=== PATIENT | female | born 1940 | race Caucasian/White ===

== ENCOUNTER 2017-01-15 11:32 | Outpatient (CLI) | payer MEDICARE ==
--- NOTE | 2017-01-15 14:35 | PRG ---
DATE OF SERVICE: 01/15/2017 HISTORY: Ms. Claire Braun is a very pleasant 76-year-old accompanied by her daughter who presen ts to the [facility] for evaluation of a recurrent ulceration of the right heel. At the time of t he patient's last visit, Ms. Braun was placed on dressing changes of Promogran, Silverlon and Mepil ex border 3 times per week after cleansing and irrigation with the assistance of Home Health. The p atient is now utilizing a Heelift boot which has been customized by the patient's daughter. Ms. Nahomy oliva has no complaints today. She denies any fever or chills. PHYSICAL EXAMINATION: VITAL SIGNS: Temperature 98.0, pulse 72, respirations 18, blood pressure 132/68. Accu-Chek 331. EXTREMITIES: The ulceration of the right heel measures approximately 2.0 x 1.0 cm. The dimensions of the wound at the time of the patient's last visit were approximately 2.1 x 0.8 cm. Granulation t issue is present within the wound margins. No purulent drainage is associated with the wound. No e rythema of the skin surrounding the wound is present. No maceration of the skin of the periwound is noted. No significant edema of the right foot is present on today's exam. ASSESSMENT AND PLAN: 1. Right heel ulceration, recurrent. Dressing changes of Promogran and Silverlon, 4 x 4s, Kerlix, and an Adebayo bandage will be initiated today. These dressing changes are to be performed 3 times per week after cleansing and irrigation with the assistance of Home Health. Plain films of the right fo ot will also be obtained to look for findings suggestive of osteomyelitis. The patient has also bee n given a prescription for Bactrim DS #20 one p.o. b.i.d. x10 days. I will see Ms. Braun again in 2 weeks. The patient is to continue to utilize the Heelift boot at all times. As stated above, the patient is now utilizing a Heelift boot which has been customized by the patient's daughter. Previ ous cultures of the heel reveled the growth of Enterobacter cloacae complex sensitive to Bactrim. 2. Diabetes mellitus. The patient's Accu-Chek in clinic today is 331. The patient's daughter has been reminded that for optimal wound healing, the patient's blood glucoses should remain below 150. 3. Obstructive sleep apnea. 4. Attention deficit hyperactivity disorder. 5. Autoimmune hepatitis. 6. Hypertension. 7. Adrenal mass. 8. Dementia. 9. Psoriasis. 10. Osteoporosis.
[2017-01-15] MEDS ORDERED: Sodium Chloride 0.9% 15 ML NEB ONE (17:19)
== END 2017-01-15 11:33 | disposition home or self-care (01) ==
LOC: WCC 11:32
PROVIDERS: ATTEND Family Medicine
DX: E11.621 Type 2 diabetes mellitus with foot ulcer (principal); L97.419 Non-pressure chronic ulcer of right heel and midfoot with unspecified severity; G47.33 Obstructive sleep apnea (adult) (pediatric); F90.9 Attention-deficit hyperactivity disorder, unspecified type; K75.4 Autoimmune hepatitis; I10 Essential (primary) hypertension; M81.0 Age-related osteoporosis without current pathological fracture; F03.90 Unspecified dementia, unspecified severity, without behavioral disturbance, psychotic disturbance, mood disturbance, and anxiety; L40.9 Psoriasis, unspecified; E27.8 Other specified disorders of adrenal gland
CPT/HCPCS: 36416; 97602; A4218

== ENCOUNTER 2017-01-19 10:20 | Outpatient (CLI) | payer MEDICARE ==
--- NOTE | 2017-01-19 14:39 | RAD ---
LEFT FOOT THREE VIEWS: History: Chronic heel ulceration. Possible osteomyelitis. FINDINGS: Severe osteopenia is seen involving all bones of the foot. The calcaneus is intact. There is no evid ence of destruction or listhesis. No plain film evidence of osteomyelitis seen involving the calcane us. No evidence of acute fracture. No other focal osseous lesion. IMPRESSION: Severe osteopenia without focal lytic or destructive process. POS: MICHAEL
== END 2017-01-19 10:21 | disposition home or self-care (01) ==
LOC: RAD 10:20
PROVIDERS: ATTEND Family Medicine
DX: E11.621 Type 2 diabetes mellitus with foot ulcer (principal); M85.871 Other specified disorders of bone density and structure, right ankle and foot

== ENCOUNTER 2017-01-29 10:34 | Outpatient (CLI) | payer MEDICARE ==
--- NOTE | 2017-01-29 12:47 | PRG ---
DATE OF SERVICE: 01/29/2017 HISTORY: Ms. Claire Braun is a very pleasant 76-year-old, accompanied by her daughter, who pres ents to the [facility] for evaluation of a recurrent ulceration of the right heel. Since the [facility] ent's last visit, Ms. Braun has been receiving dressing changes of Promogran, Silverlon, 4 x 4s, Ke rlix, and an Adebayo bandage 3 times per week after cleansing and irrigation with the assistance of Home Health. The patient continues to utilize a Heelift boot, which has been customized by the patient' s daughter. Ms. Braun has no complaints today. She denies any fever or chills. PHYSICAL EXAMINATION: VITAL SIGNS: Temperature 97.4, pulse 64, respirations 18, blood pressure 114/67. Accu-Chek 321. EXTREMITIES: The ulceration of the right heel measures approximately 1.5 x 2.5 cm. The dimensions of the wound at the time of the patient's last visit were approximately 2.0 x 1.0 cm. No purulent d rainage is associated with the wound. No erythema of the skin surrounding the wound is present. No maceration of the skin of the periwound is noted. No significant edema of the right foot is presen t on exam today. ASSESSMENT AND PLAN: 1. Right heel ulceration, recurrent. Dressing changes of Silverlon, 4 x 4s, Kerlix, and an Adebayo ban dage are to be performed 3 times per week after cleansing and irrigation with the assistance of Home Health. Promogran will be discontinued at the time of dressing changes. Plain films of the right foot obtained on 01/19/2017 showed no evidence of a focal lytic or destructive process. I will see Ms. Braun again in 2 weeks. The patient is to continue to utilize her Heelift boot at all times. As stated above, the patient is utilizing a Heelift boot, which has been customized by the patient's daughter. 2. Diabetes mellitus. The patient's Accu-Chek in clinic today is 321. The patient's daughter has been reminded that for optimal wound healing, the patient's blood glucoses should remain below 150. 3. Obstructive sleep apnea. 4. Attention deficit hyperactivity disorder. 5. Autoimmune hepatitis. 6. Hypertension. 7. Adrenal mass. 8. Dementia. 9. Psoriasis. 10. Osteoporosis.
[2017-01-29] MEDS ORDERED: Sodium Chloride 0.9% 15 ML NEB ONE (17:31)
[2017-01-29] MEDS ORDERED: Lidocaine 2% Jelly 5 ML TUBE ONE (17:31)
== END 2017-01-29 10:35 | disposition home or self-care (01) ==
LOC: WCC 10:34
PROVIDERS: ATTEND Family Medicine
DX: E11.621 Type 2 diabetes mellitus with foot ulcer (principal); L97.419 Non-pressure chronic ulcer of right heel and midfoot with unspecified severity; G47.33 Obstructive sleep apnea (adult) (pediatric); F90.9 Attention-deficit hyperactivity disorder, unspecified type; K75.4 Autoimmune hepatitis; I10 Essential (primary) hypertension; E27.9 Disorder of adrenal gland, unspecified; F03.90 Unspecified dementia, unspecified severity, without behavioral disturbance, psychotic disturbance, mood disturbance, and anxiety; L40.9 Psoriasis, unspecified; M81.0 Age-related osteoporosis without current pathological fracture
CPT/HCPCS: 97602; A4218

== ENCOUNTER 2017-03-04 10:01 | Outpatient (CLI) | payer MEDICARE ==
--- NOTE | 2017-03-04 16:16 | PRG ---
DATE OF SERVICE: 03/04/2017 HISTORY: Ms. Claire rBaun is a very pleasant 76-year-old accompanied by her daughter who present s to the [facility] for evaluation of a recurrent ulceration of the right heel. Since the patient' s last visit, Ms. Braun has been receiving dressing changes of Silverlon, 4 x 4s, Kerlix, and an Adebayo bandage 3 times per week after cleansing and irrigation with the assistance of Home Health. The pat ient continues to utilize the Heelift boot, which has been customized by the patient's daughter. Ms. Braun has no complaints today. She denies any fever or chills. PHYSICAL EXAMINATION: VITAL SIGNS: Temperature 97.7, pulse 63, respirations 17, blood pressure 150/80. Accu-Chek 274. EXTREMITIES: The ulceration of the right heel has completely healed. No significant edema of the ri ght foot is present on exam today. ASSESSMENT AND PLAN: 1. Right heel ulceration recurrent. As stated above, the ulceration has completely healed. Ms. Nahomy oliva will be discharged from clinic today with followup on a p.r.n. basis. The patient is to continue to utilize her Heelift boot at all times. As stated above, the patient is utilizing a Heelift boot, which has been customized by the patient's daughter. 2. Diabetes mellitus. The patient's Accu-Chek in clinic today is 274. 3. Obstructive sleep apnea. 4. Attention deficit hyperactivity disorder. 5. Autoimmune hepatitis. 6. Hypertension. 7. Adrenal mass. 8. Dementia. 9. Psoriasis. 10. Osteoporosis.
== END 2017-03-04 10:02 | disposition home or self-care (01) ==
LOC: WCC 10:01
PROVIDERS: ATTEND Family Medicine
DX: E11.621 Type 2 diabetes mellitus with foot ulcer (principal); L97.419 Non-pressure chronic ulcer of right heel and midfoot with unspecified severity; G47.33 Obstructive sleep apnea (adult) (pediatric); F90.9 Attention-deficit hyperactivity disorder, unspecified type; F03.90 Unspecified dementia, unspecified severity, without behavioral disturbance, psychotic disturbance, mood disturbance, and anxiety; L40.9 Psoriasis, unspecified; M81.0 Age-related osteoporosis without current pathological fracture; E27.8 Other specified disorders of adrenal gland; K75.4 Autoimmune hepatitis; I10 Essential (primary) hypertension
CPT/HCPCS: 36416; 97602

== ENCOUNTER 2019-03-13 19:44 | Inpatient (IN) | payer MEDICARE ==
[2019-03-13] MEDS ORDERED: Ondansetron PF 4 MG/2 ML Vial ONE (20:12)
[2019-03-13 20:21] LABS: Hemoglobin 13.1 g/dL (12.0-16.0); Mean Corpuscular Hemoglobin 35.4 pg (27.0-31.0); Mean Corpuscular Volume 98.3 fL (78.0-98.0); RBC Distribution Width 13.5 % (11.5-14.5); Red Blood Cell (RBC) Count 3.69 mill/uL (4.20-5.40); White Blood Cell (WBC) Count 8.4 thou/uL (4.8-10.8)
[2019-03-13 20:22] LABS: #Lymphocytes 0.4 thou/uL (1.20-3.40); #Monocytes 0.7 thou/uL (0.11-0.59); #Neutrophils 7.3 thou/uL (1.40-6.50); %Eosinophils 0.3 % (0.0-10.0); %Lymphocytes 5.1 % (21.0-51.0); %Monocytes 7.9 % (0.0-10.0); %Neutrophils 86.7 % (42.0-75.0)
--- NOTE | 2019-03-13 20:31 | RAD ---
Chest one view HISTORY: Fever and cough. COMPARISON: 06/20/2014. FINDINGS: Cardiac silhouette is magnified by projection. Shallow inspiration accentuates pulmonary ma rkings. Mediastinum is midline with aortic calcification. Radiopaque tubing over the right central chest is again demonstrated. No lobar consolidation or evidence of pneumothorax. IMPRESSION: Atherosclerosis. No active cardiopulmonary abnormalities are otherwise demonstrated.
[2019-03-13] MEDS ORDERED: Piperacillin/Tazobactam 4.5 GM VIAL ONE (20:34)
[2019-03-13 20:38] LABS: MDiff Complete? YES; Mean Platelet Volume 7.6 fL (7.4-10.4); Platelet Count 107 thou/uL (130-400); Platelet Morphology Comment Appears Decreased; Polychromasia SLIGHT = 2-3 cells (100X) (0-2/hpf)
[2019-03-13 20:41] LABS: ALT (SGPT) 28 U/L (8-55); AST (SGOT) 39 U/L (5-34); Albumin 3.5 g/dL (3.4-4.8); Alkaline Phosphatase 149 U/L (40-110); Anion Gap 13 mmol/L (10-20); BUN (Urea Nitrogen) 14 mg/dL (9.8-20.1); CK (CPK) 67 U/L (29-168); Calc. Creatinine Clearance 0 mL/min (70-130); Calcium 8.2 mg/dL (7.8-10.44); Carbon Dioxide 20 mmol/L (23-31); Chloride 106 mmol/L (98-107); Estimated GFR-MDRD 75; Glucose 240 mg/dL (83-110); Potassium 3.8 mmol/L (3.5-5.1); Protein, Total 6.5 g/dL (6.0-8.3); Sodium 135 mmol/L (136-145)
[2019-03-13 21:09] LABS: Bacteria/HPF None Seen HPF (None Seen); Bilirubin Negative (Negative); Blood, Urine 2+ (Negative); Clarity Clear (Clear); Glucose, Urine (Dipstick) Greater than 1000 mg/dL (Negative); Leukocyte Negative Leu/uL (Negative); Nitrite Negative (Negative); Protein, Urine (Dipstick) 100 mg/dL (Neg-Trace); Squamous Epithelial 0-3 HPF (0-3)
[2019-03-13] MEDS ORDERED: Oseltamivir 75 MG CAP PO SCH (21:30)
[2019-03-13] MEDS ORDERED: Acetaminophen 650 MG Suppository ONE (21:58)
[2019-03-13] MEDS ORDERED: Oseltamivir 6 MG/ML ORAL SUSP PO SCH (22:00)
[2019-03-13] MEDS ORDERED: Bisacodyl 10 MG SUPP PR PRN (22:24)
[2019-03-13] MEDS ORDERED: Guaifenesin DM 100-10/5 ML UDCUP PO PRN (22:24)
[2019-03-13] MEDS ORDERED: Bisacodyl 5 MG TAB PO PRN (22:24)
[2019-03-13] MEDS ORDERED: hydrALAZINE 20 MG/ML VIAL SLOW IVP PRN (22:27)
[2019-03-13] MEDS ORDERED: Promethazine HCl 12.5 MG in Sodium Chloride 0.9% 50 ML IVPB PRN (22:27)
[2019-03-13] MEDS ORDERED: cloNIDine 0.1 MG TAB PO PRN (22:27)
[2019-03-13] MEDS ORDERED: Morphine 2 MG/ML SYRINGE SLOW IVP PRN (22:27)
[2019-03-13] MEDS ORDERED: guaiFENesin/Codeine Phosphate 200 mg/20 mg 10 ml UD Cup PO PRN ×2 (22:28→22:37)
[2019-03-13] MEDS ORDERED: Benzonatate 100 MG CAP PO PRN (22:28)
--- NOTE | 2019-03-14 02:12 | PDOC.HHP ---
Hospitalist HPI - History of Present Illness Fevers History of Present Illness: Patient is a 78 year old female with PMH HTN, DM autoimmune hepatitis, alzheimers (end stage), NPH, TIA in September 2103, SOY who presents from [facility] for fevers and altered mental status x 3 days, high as 103 reported, she is end stage alzheimers per daughter at bedside and is unable to do adl etc at [facility], has not walked in 2 years, is currently awake and alert but does not really regard speaker, is staring at celing. In ED, temp to 102 noted, has been hypertensive sbp 160s and tachypneic mostly in 20-30 range, flu test positive for flu a, given IVF 30cc/kg and vanc/zosyn/levaquin and tamiflu and sound physicians consulted for admission. Hospitalist ROS - Review of Systems ROS unobtainable: due to mental status - Medication Medications: Active Medications Generic Name Dose Route Start Last Admin Trade Name Freq PRN Reason Stop Dose Admin Albuterol/Ipratropium 3 ml 03/14/19 01:00 03/14/19 00:12 Duoneb NEB 3 ml [id number] STACY Administration Hospitalist History - Past Medical History Other Medical History: HTN, DM autoimmune hepatitis, alzheimers (end stage), NPH, TIA in September 2103, SOY - Past Surgical History Other Surgical History: shunt 2013 knee - Family History Family History: reports: no pertinent history - Social History Smoking Status: Never smoker Alcohol: reports: None Drugs: reports: none - Exam General - other findings: alert, awake, non communicative, no distress Eye: PERRL, anicteric sclera ENT: normocephalic atraumatic, moist mucosa Neck: supple, no JVD Heart: no murmur, no gallops, no rubs Heart - other findings: tachycardia regular Respiratory: CTAB, no wheezes, no rales, no ronchi Gastrointestinal: soft, non-tender, non-distended, normal bowel sounds Extremities: no cyanosis, no clubbing, no edema Skin: no lesions, no rashes Neurological - other findings: no focal deficits, moving all extremities Psychiatric: not oriented Hospitalist Results - Labs Result Diagrams: 03/13/19 20:03 03/13/19 20:03 Lab results: WBC 8.4 thou/uL (4.8-10.8) 12/08/19 20:03 Hgb 13.1 g/dL (12.0-16.0) 03/13/19 20:03 Hct 36.3 % (36.0-47.0) 03/13/19 20:03 MCV 98.3 fL (78.0-98.0) H 03/13/19 20:03 Plt Count 107 thou/uL (130-400) L 03/13/19 20:03 Neutrophils % 86.7 % (42.0-75.0) H 03/13/19 20:03 Sodium 135 mmol/L (136-145) L 03/13/19 20:03 Potassium 3.8 mmol/L (3.5-5.1) 03/13/19 20:03 Chloride 106 mmol/L (98-107) 03/13/19 20:03 Carbon Dioxide 20 mmol/L (23-31) L 03/13/19 20:03 BUN 14 mg/dL (9.8-20.1) 03/13/19 20:03 Creatinine 0.75 mg/dL (0.6-1.1) 03/13/19 20:03 Glucose 240 mg/dL (83-110) H 03/13/19 20:03 Lactic Acid 1.2 mmol/L (0.5-2.2) 03/13/19 20:03 Calcium 8.2 mg/dL (7.8-10.44) 03/13/19 20:03 Total Bilirubin 1.0 mg/dL (0.2-1.2) 03/13/19 20:03 AST 39 U/L (5-34) H 03/13/19 20:03 ALT 28 U/L (8-55) 03/13/19 20:03 Alkaline Phosphatase 149 U/L (40-110) H 03/13/19 20:03 Creatine Kinase 67 U/L (29-168) 03/13/19 20:03 Troponin I 0.022 ng/mL (< 0.028) 03/13/19 20:03 B-Natriuretic Peptide 117.1 pg/mL (0-100) H 03/13/19 20:03 Serum Total Protein 6.5 g/dL (6.0-8.3) 03/13/19 20:03 Albumin 3.5 g/dL (3.4-4.8) 03/13/19 20:03 Urine Ketones 40 mg/dL (Negative) A 03/13/19 20:38 Urine Blood 2+ (Negative) A 03/13/19 20:38 Urine Nitrite Negative (Negative) 03/13/19 20:38 Ur Leukocyte Esterase Negative Adolfo/uL (Negative) 03/13/19 20:38 Urine RBC 11-20 HPF (0-3) A 03/13/19 20:38 Urine WBC 4-6 HPF (0-3) A 03/13/19 20:38 Ur Squamous Epith Cells 0-3 HPF (0-3) 03/13/19 20:38 Urine Bacteria None Seen HPF (None Seen) 03/13/19 20:38 Hospitalist H&P A/P - Plan Plan: Patient is a 78 year old female with PMH HTN, DM autoimmune hepatitis, alzheimers (end stage), NPH, TIA in September 2103, SOY who presents from [facility] for fevers and altered mental status x 3 days # HTN #DM # autoimmune hepatitis #alzheimers (end stage) #NPH #TIA in September 2103 #SOY - admit to telemetry - start tamiflu - resume home meds once med rec complete - PRN ativan IV for agitation, uses mechanical soft diet at home will continue here and liquid medications as available due to historty of spitting out pills - tylenol PRN for fever TN - droplet precautions - follow blodo cultures - hold empiric abx, monitor closely on maintenance IVF
[2019-03-14] MEDS ORDERED: Acetaminophen 650 MG Suppository ONE ×2 (02:43→07:00)
[2019-03-14] MEDS ORDERED: Lorazepam 2 MG/ML VIAL SLOW IVP PRN (02:46)
[2019-03-14] MEDS: Oseltamivir 6 MG/ML ORAL SUSP PO SCH ×5 (02:53→23:09)
[2019-03-14] MEDS ORDERED: Lorazepam 2 MG/ML VIAL ONE (02:54)
[2019-03-14 06:25] LABS: Anion Gap 14 mmol/L (10-20); BUN (Urea Nitrogen) 15 mg/dL (9.8-20.1); Calc. Creatinine Clearance 0 mL/min (70-130); Calcium 7.5 mg/dL (7.8-10.44); Carbon Dioxide 17 mmol/L (23-31); Chloride 110 mmol/L (98-107); Estimated GFR-MDRD 68; Glucose 184 mg/dL (83-110); Magnesium 1.4 mg/dL (1.6-2.6); Potassium 3.6 mmol/L (3.5-5.1); Sodium 137 mmol/L (136-145)
[2019-03-14 06:53] LABS: Band 25 % (5-11); Hemoglobin 11.4 g/dL (12.0-16.0); Lymphocytes 8 % (21-51); MDiff Complete? YES; Mean Corpuscular HGB CONC 34.6 g/dL (32.0-36.0); Mean Corpuscular Hemoglobin 33.7 pg (27.0-31.0); Mean Corpuscular Volume 97.3 fL (78.0-98.0); Monocytes 2 % (0-10); Neutrophil 65 % (42-75); Platelet Count 95 thou/uL (130-400); Platelet Morphology Comment Appears Decreased; RBC Distribution Width 13.5 % (11.5-14.5); Red Blood Cell (RBC) Count 3.38 mill/uL (4.20-5.40); White Blood Cell (WBC) Count 5.1 thou/uL (4.8-10.8)
[2019-03-14] MEDS ORDERED: Oseltamivir 6 MG/ML ORAL SUSP PO SCH ×2 (09:00)
[2019-03-14] MEDS ORDERED: Oseltamivir 75 MG CAP PO SCH (09:00)
[2019-03-14] MEDS ORDERED: Loratadine 5 MG/5 ML UDCUP PO PRN (09:32)
[2019-03-14] MEDS ORDERED: Dextrose 50% Abboject 50 ML SYRINGE SLOW IVP PRN (09:41)
[2019-03-14] MEDS ORDERED: Dextrose 5% in Water 1,000 ML IV PRN (09:41)
[2019-03-14] MEDS ORDERED: Lisinopril 20 MG TAB PO SCH (09:45)
[2019-03-14] MEDS ORDERED: Amlodipine 10 MG TAB PO SCH (09:45)
[2019-03-14] MEDS ORDERED: Labetalol 100 MG TAB PO SCH (09:45)
[2019-03-14] MEDS ORDERED: Labetalol 100 MG TAB ONE (11:40)
[2019-03-14] MEDS ORDERED: Enoxaparin Sodium 40 MG/0.4 ML SYRINGE ONE ×2 (11:42→13:26)
--- NOTE | 2019-03-14 12:21 | PDOC.EVN ---
Event Note - Event Note Event Note: Patient seen and examined. Lungs are generally clear. She is non-verbal, but alert. Has influenza A infection and is immunocompromised. She does not have evidence of pneumonia. Continue Tamiflu and supportive care. Replete Magnesium. SSI. Daughter reports she has not voided since 9pm yesterday. Discussed with nurse. Bladder scan and potentially give additional fluids. Will start maintenance fluids now as she is not taking much po. Hands are swollen and that is new. Has IV in both hands. Monitor.
[2019-03-14] MEDS ORDERED: Amlodipine 5 MG TAB ONE ×2 (13:32)
[2019-03-14] MEDS: Enoxaparin Sodium 40 MG/0.4 ML SYRINGE SC SCH (13:41)
[2019-03-14] MEDS: Sodium Chloride 0.9% 1,000 ML IV SCH ×3 (13:44→19:15)
[2019-03-14] MEDS ORDERED: Sodium Chloride 0.9% 500 ML IV SCH (14:45)
[2019-03-14] MEDS: azaTHIOprine 50 MG TAB PO SCH ×2 (16:00→16:04)
[2019-03-14] MEDS: Senokot S 8.6-50 MG TAB PO SCH ×2 (16:04→22:54)
[2019-03-14] MEDS: Labetalol 100 MG TAB PO SCH (22:53)
[2019-03-15] MEDS ORDERED: Melatonin 3 MG TAB PO PRN (00:31)
[2019-03-15] MEDS ORDERED: Temazepam 15 MG CAP PO PRN (00:32)
[2019-03-15] MEDS: Melatonin 3 MG TAB PO PRN ×2 (00:51→20:31)
[2019-03-15] MEDS: Acetaminophen 650 MG Suppository PR PRN ×2 (04:05→23:50)
[2019-03-15] MEDS: Sodium Chloride 0.9% 1,000 ML IV SCH ×3 (04:05→23:49)
[2019-03-15 05:39] LABS: Band 48 % (5-11); Hemoglobin 10.8 g/dL (12.0-16.0); Lymphocytes 13 % (21-51); MDiff Complete? YES; Mean Corpuscular HGB CONC 34.6 g/dL (32.0-36.0); Mean Corpuscular Volume 98.4 fL (78.0-98.0); Mean Platelet Volume 8.3 fL (7.4-10.4); Monocytes 2 % (0-10); Neutrophil 37 % (42-75); Platelet Count 101 thou/uL (130-400); Platelet Morphology Comment Appears Decreased; RBC Distribution Width 13.9 % (11.5-14.5); Red Blood Cell (RBC) Count 3.18 mill/uL (4.20-5.40); White Blood Cell (WBC) Count 5.8 thou/uL (4.8-10.8)
[2019-03-15 05:50] LABS: Anion Gap 11 mmol/L (10-20); BUN (Urea Nitrogen) 17 mg/dL (9.8-20.1); Calc. Creatinine Clearance 75 mL/min (70-130); Calcium 7.8 mg/dL (7.8-10.44); Carbon Dioxide 19 mmol/L (23-31); Chloride 112 mmol/L (98-107); Estimated GFR-MDRD 81; Glucose 214 mg/dL (83-110); Potassium 3.5 mmol/L (3.5-5.1); Sodium 138 mmol/L (136-145)
[2019-03-15] MEDS: Amlodipine 10 MG TAB PO SCH (09:30)
[2019-03-15] MEDS: clonazePAM 0.5 MG TAB PO SCH (09:30)
[2019-03-15] MEDS: Enoxaparin Sodium 40 MG/0.4 ML SYRINGE SC SCH (09:31)
[2019-03-15] MEDS: Insulin Glargine 30 UNITS in Pre-Filled Syringe 1 EACH SC SCH (09:31)
[2019-03-15] MEDS: azaTHIOprine 50 MG TAB PO SCH (09:32)
[2019-03-15] MEDS: Oseltamivir 6 MG/ML ORAL SUSP PO SCH ×2 (09:33→20:30)
[2019-03-15] MEDS: Senokot S 8.6-50 MG TAB PO SCH ×2 (09:33→20:31)
[2019-03-15] MEDS: Labetalol 100 MG TAB PO SCH ×2 (09:33→20:31)
[2019-03-15] MEDS: Pantoprazole 40 MG GRANULES PACKET PO SCH (09:33)
[2019-03-15] MEDS: Lisinopril 20 MG TAB PO SCH (09:33)
[2019-03-15] MEDS: HumaLOG 300 UNITS/3 ML VIAL SC PRN ×2 (13:47→17:33)
--- NOTE | 2019-03-15 21:25 | PDOC.HOSPP ---
- Subjective Subjective: A little better today. More alert. Speaking a little more. Still seems a mildly tachypneic to her daughter. - Objective Vital Signs & Weight: Vital Signs (12 hours) Temp Pulse Resp BP BP Pulse Ox 03/15/19 20:31 105 H 175/77 H 03/15/19 18:59 105 H 20 93 L 03/15/19 15:42 98.2 F 102 H 32 H 138/70 96 03/15/19 13:07 84 20 93 L 03/15/19 11:11 97.3 F L 89 28 H 136/65 96 03/15/19 09:30 87 127/65 Weight Weight 145 lb 11.2 oz I&O: 03/14/19 03/15/19 03/16/19 06:59 06:59 06:59 Intake Total 1373 Output Total 350 Balance 1023 Result Diagrams: 03/15/19 04:12 03/15/19 04:12 Additional Labs: Accuchecks 03/15/19 03/15/19 03/15/19 20:34 16:57 13:21 POC Glucose 228 H 260 H 284 H 03/15/19 03/15/19 05:50 00:09 POC Glucose 201 H 250 H Hospitalist ROS - Medication Medications: Active Medications Generic Name Dose Route Start Last Admin Trade Name Freq PRN Reason Stop Dose Admin Acetaminophen 650 mg 03/14/19 02:16 03/15/19 04:05 Tylenol RI 650 mg Q4H PRN Administration Headache/Fever or Pain Albuterol/Ipratropium 3 ml 03/14/19 01:00 03/15/19 18:59 Duoneb NEB 3 ml [id number] STACY Administration Amlodipine Besylate 10 mg 03/15/19 09:00 03/15/19 09:30 Norvasc PO 10 mg DAILY STACY Administration Azathioprine 150 mg 03/15/19 09:00 03/15/19 09:32 Imuran PO 150 mg DAILY STACY Administration Clonazepam 1 mg 03/15/19 09:00 03/15/19 09:30 Klonopin PO 1 mg DAILY STACY Administration Enoxaparin Sodium 40 mg 03/14/19 09:00 03/15/19 09:31 Lovenox SC 40 mg 0900 STACY Administration Insulin Glargine 30 units/ 0.3 mls @ 0 mls/hr 03/15/19 09:00 03/15/19 09:31 Miscellaneous Medication SC 0.3 mls QAM STACY Administration Sodium Chloride 1,000 mls @ 100 mls/hr 03/14/19 14:37 03/15/19 13:48 Normal Saline 0.9% IV 1,000 mls .Q10H STACY Administration Insulin Human Lispro 0 units 03/14/19 09:41 03/15/19 17:33 Humalog SC 4 unit .MILD SLIDING SCALE PRN Administration Mild Correctional Scale Labetalol HCl 100 mg 03/14/19 21:00 03/15/19 20:31 Normodyne PO 100 mg BID STACY Administration Lisinopril 40 mg 03/15/19 09:00 03/15/19 09:33 Zestril PO 40 mg DAILY STACY Administration Lorazepam 1 mg 03/14/19 02:46 03/14/19 03:02 Ativan SLOW IVP 1 mg Q4H PRN Administration Anxiety/Agitation Melatonin 3 mg 03/14/19 09:32 03/15/19 20:31 Melatonin PO 3 mg HSPRN PRN Administration Insomnia Oseltamivir Phosphate 75 mg 03/14/19 09:00 03/15/19 20:30 Tamiflu PO 03/18/19 21:01 75 mg BID STACY Administration Pantoprazole Sodium 40 mg 03/15/19 09:00 03/15/19 09:33 Protonix PO 40 mg DAILY STACY Administration Senna/Docusate Sodium 1 tab 03/14/19 09:00 03/15/19 20:31 Senokot S PO 1 tab BID STACY Administration Sertraline HCl 50 mg 03/15/19 09:00 03/15/19 09:34 Zoloft PO 50 mg DAILY STACY Administration - Exam General Appearance: NAD, awake alert Heart: RRR, no murmur, no gallops, no rubs, normal peripheral pulses Respiratory: CTAB, no wheezes, no rales, no ronchi, normal chest expansion, normal percussion, tachypneic (Mild) Respiratory - other findings: Upper airway noise. Will not cough on demand. Gastrointestinal: soft, non-distended, normal bowel sounds Extremities: no cyanosis, no clubbing, no edema Musculoskeletal: normal tone Hosp A/P (1) Acute respiratory failure with hypoxia Code(s): J96.01 - ACUTE RESPIRATORY FAILURE WITH HYPOXIA Status: Acute (2) Influenza A Code(s): J10.1 - FLU DUE TO OTH IDENT INFLUENZA VIRUS W OTH RESP MANIFEST Status: Acute (3) HLD (hyperlipidemia) Code(s): E78.5 - HYPERLIPIDEMIA, UNSPECIFIED Status: Acute (4) Dementia Code(s): F03.90 - UNSPECIFIED DEMENTIA WITHOUT BEHAVIORAL DISTURBANCE Status: Acute (5) Diabetes Code(s): E11.9 - TYPE 2 DIABETES MELLITUS WITHOUT COMPLICATIONS Status: Acute (6) Autoimmune hepatitis Code(s): K75.4 - AUTOIMMUNE HEPATITIS Status: Acute (7) Sepsis Code(s): A41.9 - SEPSIS, UNSPECIFIED ORGANISM Status: Acute (8) HTN (hypertension) Code(s): I10 - ESSENTIAL (PRIMARY) HYPERTENSION Status: Acute (9) Nausea & vomiting Code(s): R11.2 - NAUSEA WITH VOMITING, UNSPECIFIED Status: Acute - Plan Doing better. Continue the Tamiflu until she is afebrile. Continue Imuran. Blood sugars a little high. Continue to monitor, SSI. Supplemental oxygen as needed. Nebs PRN. Continue antihypertensives. Amlodipine, Labetalol, Lisinopril. DVT, PUD prophylaxis. PRN anti-emetics
[2019-03-15] MEDS: Temazepam 15 MG CAP PO PRN (23:56)
[2019-03-16 04:55] LABS: #Lymphocytes 0.9 thou/uL (1.20-3.40); #Monocytes 0.3 thou/uL (0.11-0.59); #Neutrophils 2.3 thou/uL (1.40-6.50); %Eosinophils 0.1 % (0.0-10.0); %Lymphocytes 24.4 % (21.0-51.0); %Monocytes 9.3 % (0.0-10.0); %Neutrophils 66.2 % (42.0-75.0); Hemoglobin 9.8 g/dL (12.0-16.0); Mean Corpuscular HGB CONC 34.6 g/dL (32.0-36.0); Mean Corpuscular Hemoglobin 34.3 pg (27.0-31.0); Mean Platelet Volume 7.6 fL (7.4-10.4); Platelet Count 106 thou/uL (130-400); RBC Distribution Width 13.5 % (11.5-14.5); Red Blood Cell (RBC) Count 2.86 mill/uL (4.20-5.40); White Blood Cell (WBC) Count 3.5 thou/uL (4.8-10.8)
[2019-03-16 05:13] LABS: Anion Gap 8 mmol/L (10-20); BUN (Urea Nitrogen) 11 mg/dL (9.8-20.1); Calc. Creatinine Clearance 76 mL/min (70-130); Calcium 7.4 mg/dL (7.8-10.44); Carbon Dioxide 20 mmol/L (23-31); Chloride 116 mmol/L (98-107); Estimated GFR-MDRD 87; Glucose 242 mg/dL (83-110); Magnesium 1.9 mg/dL (1.6-2.6); Sodium 141 mmol/L (136-145)
[2019-03-16] MEDS: Amlodipine 10 MG TAB PO SCH (09:45)
[2019-03-16] MEDS: azaTHIOprine 50 MG TAB PO SCH (09:45)
[2019-03-16] MEDS: Enoxaparin Sodium 40 MG/0.4 ML SYRINGE SC SCH (09:46)
[2019-03-16] MEDS: clonazePAM 0.5 MG TAB PO SCH (09:46)
[2019-03-16] MEDS: Labetalol 100 MG TAB PO SCH ×2 (09:48→21:22)
[2019-03-16] MEDS: Insulin Glargine 30 UNITS in Pre-Filled Syringe 1 EACH SC SCH (09:48)
[2019-03-16] MEDS: Pantoprazole 40 MG GRANULES PACKET PO SCH (09:49)
[2019-03-16] MEDS: Senokot S 8.6-50 MG TAB PO SCH ×2 (09:49→21:22)
[2019-03-16] MEDS: Lisinopril 20 MG TAB PO SCH (09:50)
[2019-03-16] MEDS: Oseltamivir 6 MG/ML ORAL SUSP PO SCH ×2 (09:53→21:26)
[2019-03-16] MEDS: Sodium Chloride 0.9% 1,000 ML IV SCH ×2 (09:58→18:08)
[2019-03-16 14:31] VITALS: BMI 22.8
[2019-03-16] MEDS: Acetaminophen 650 MG Suppository PR PRN (16:04)
--- NOTE | 2019-03-16 17:58 | PDOC.HOSPP ---
- Subjective Encounter Date: 03/16/19 Encounter Time: 17:40 Subjective: f/u for Influenza A and acute hypoxic resp failure. Dtr reports her mother with increased SOB today. Receiving IVF's, Duonebs. - Objective Vital Signs & Weight: Vital Signs (12 hours) Temp Pulse Resp BP BP Pulse Ox 03/16/19 15:49 99.9 F H 94 32 H 159/76 H 93 L 03/16/19 13:55 84 20 03/16/19 11:59 98.8 F 83 18 134/66 94 L 03/16/19 10:04 187/83 H 03/16/19 09:45 107 H 193/92 H 03/16/19 08:19 98.9 F 103 H 39 H 146/71 H 96 03/16/19 07:41 97 03/16/19 07:40 82 22 H 97 03/16/19 06:15 98.6 F Weight Admit Weight 153 lb 9.6 oz Weight 145 lb 11.2 oz I&O: 03/15/19 03/16/19 03/17/19 06:59 06:59 06:59 Intake Total 1373 1339 Output Total 350 700 Balance 1023 639 Result Diagrams: 03/16/19 04:33 03/16/19 03:30 Additional Labs: Accuchecks 03/16/19 03/16/19 03/16/19 17:24 10:43 05:48 POC Glucose 265 H 235 H 213 H 03/15/19 20:34 POC Glucose 228 H Radiology Reviewed by me: Yes (PCXR - no acute infiltrate 03/13/19) EKG Reviewed by me: Yes (Tele - SR) Hospitalist ROS - Medication Medications: Active Medications Generic Name Dose Route Start Last Admin Trade Name Freq PRN Reason Stop Dose Admin Acetaminophen 650 mg 03/14/19 02:16 03/16/19 16:04 Tylenol CO 650 mg Q4H PRN Administration Headache/Fever or Pain Albuterol/Ipratropium 3 ml 03/14/19 01:00 03/16/19 13:55 Duoneb NEB 3 ml [id number] STACY Administration Amlodipine Besylate 10 mg 03/15/19 09:00 03/16/19 09:45 Norvasc PO 10 mg DAILY STACY Administration Azathioprine 150 mg 03/15/19 09:00 03/16/19 09:45 Imuran PO 150 mg DAILY STACY Administration Clonazepam 1 mg 03/15/19 09:00 03/16/19 09:46 Klonopin PO 1 mg DAILY STACY Administration Enoxaparin Sodium 40 mg 03/14/19 09:00 03/16/19 09:46 Lovenox SC 40 mg 0900 STACY Administration Insulin Glargine 30 units/ 0.3 mls @ 0 mls/hr 03/15/19 09:00 03/16/19 09:48 Miscellaneous Medication SC 0.3 mls QAM STACY Administration Insulin Human Lispro 0 units 03/14/19 09:41 03/15/19 17:33 Humalog SC 4 unit .MILD SLIDING SCALE PRN Administration Mild Correctional Scale Labetalol HCl 100 mg 03/14/19 21:00 03/16/19 09:48 Normodyne PO 100 mg BID STACY Administration Lisinopril 40 mg 03/15/19 09:00 03/16/19 09:50 Zestril PO 40 mg DAILY STACY Administration Lorazepam 1 mg 03/14/19 02:46 03/14/19 03:02 Ativan SLOW IVP 1 mg Q4H PRN Administration Anxiety/Agitation Melatonin 3 mg 03/14/19 09:32 03/15/19 20:31 Melatonin PO 3 mg HSPRN PRN Administration Insomnia Oseltamivir Phosphate 75 mg 03/14/19 09:00 03/16/19 09:53 Tamiflu PO 03/18/19 21:01 75 mg BID STACY Administration Pantoprazole Sodium 40 mg 03/15/19 09:00 03/16/19 09:49 Protonix PO 40 mg DAILY STACY Administration Senna/Docusate Sodium 1 tab 03/14/19 09:00 03/16/19 09:49 Senokot S PO 1 tab BID STACY Administration Sertraline HCl 50 mg 03/15/19 09:00 03/16/19 09:50 Zoloft PO 50 mg DAILY STACY Administration Temazepam 15 mg 03/14/19 09:33 03/15/19 23:56 Restoril PO 15 mg HSPRN PRN Administration Insomnia - Exam General Appearance: awake alert General - other findings: non-verbal Eye: PERRL, anicteric sclera ENT: normocephalic atraumatic, no oropharyngeal lesions Neck: supple, symmetric, no JVD, no thyromegaly Heart: RRR, no murmur, no gallops, no rubs, normal peripheral pulses Respiratory: no wheezes, tachypneic Respiratory - other findings: coarse sounds bilat Gastrointestinal: soft, non-tender, non-distended, normal bowel sounds, no palpable masses Extremities: no cyanosis, no clubbing, 1+ LE edema Extremities - other findings: mild edema of bilat UE's Skin: normal turgor, no lesions Neurological - other findings: R hemiplegia, non-verbal, bed bound Psychiatric: oriented to person Hosp A/P (1) Acute respiratory failure with hypoxia Code(s): J96.01 - ACUTE RESPIRATORY FAILURE WITH HYPOXIA Status: Acute Plan: Continue O2 per NC, change Duonebs q4h, Lasix 20mg IV x 1 dose, saline lock IVF (2) Influenza A Code(s): J10.1 - FLU DUE TO OTH IDENT INFLUENZA VIRUS W OTH RESP MANIFEST Status: Acute Plan: Continue Tamiflu 75mg BID, Duonebs, resp isolation (3) Hypokalemia Code(s): E87.6 - HYPOKALEMIA Status: Acute Plan: KCL supplementation, serial K+ monitoring (4) HTN (hypertension) Code(s): I10 - ESSENTIAL (PRIMARY) HYPERTENSION Status: Chronic Qualifiers: Hypertension type: essential hypertension Qualified Code(s): I10 - Essential (primary) hypertension Plan: Resume home BP regimen (5) Dementia Code(s): F03.90 - UNSPECIFIED DEMENTIA WITHOUT BEHAVIORAL DISTURBANCE Status: Chronic Plan: Family for support - Plan continue antibiotics, social media intern, respiratory therapy, DVT proph w/SCDs Continue pulm support Change Duonebs q4h Lasix 20mg IV x 1 dose now Saline lock IVF KCL supplementation AM PCXR AM lab: BMP
[2019-03-16] MEDS ORDERED: Furosemide 20 MG/2 ML VIAL SLOW IVP SCH (18:00)
[2019-03-16] MEDS: Melatonin 3 MG TAB PO PRN (21:25)
[2019-03-16] MEDS: Temazepam 15 MG CAP PO PRN (21:25)
[2019-03-17 05:25] LABS: Anion Gap 8 mmol/L (10-20); BUN (Urea Nitrogen) 10 mg/dL (9.8-20.1); Calc. Creatinine Clearance 83 mL/min (70-130); Calcium 7.6 mg/dL (7.8-10.44); Carbon Dioxide 23 mmol/L (23-31); Chloride 114 mmol/L (98-107); Estimated GFR-MDRD Greater than 90; Glucose 205 mg/dL (83-110); Potassium 3.1 mmol/L (3.5-5.1); Sodium 142 mmol/L (136-145)
--- NOTE | 2019-03-17 08:05 | RAD ---
Chest one view HISTORY: Influenza. COMPARISON: 03/13/2019. FINDINGS: Cardiac silhouette is magnified by projection. Pulmonary vasculature upper limits of normal . Mediastinum is midline with aortic calcification. Vertically oriented radiopaque tubing overlying the chest is again demonstrated. Ill-defined infiltrate projecting over the right lower lobe. Less prominent infiltrate over the left lower lobe. Now projecting over the right lung apex is an ill-defined, possibly spiculated 2.3 cm soft tissue den sity nodule. On today's exam, it is not clearly associated with the right anterior first costochondral junction. Possible nodule over the right lung base also, although it does overlie the a nterior aspect of the right rib. IMPRESSION: Probable right lung nodules. Please consider correlation with CT chest for better charact erization. Developing lower lobe infiltrates, right greater than left, consistent with inflammation. Findings were called to Dr. Britt at 0756 hours. Code CR.
[2019-03-17] MEDS: Insulin Glargine 30 UNITS in Pre-Filled Syringe 1 EACH SC SCH (09:10)
[2019-03-17] MEDS: Oseltamivir 6 MG/ML ORAL SUSP PO SCH ×2 (09:12→19:17)
[2019-03-17] MEDS: Enoxaparin Sodium 40 MG/0.4 ML SYRINGE SC SCH (09:12)
[2019-03-17] MEDS: Pantoprazole 40 MG GRANULES PACKET PO SCH (09:13)
[2019-03-17] MEDS: Lisinopril 20 MG TAB PO SCH (09:13)
[2019-03-17] MEDS: azaTHIOprine 50 MG TAB PO SCH (09:14)
[2019-03-17] MEDS: clonazePAM 0.5 MG TAB PO SCH (09:14)
[2019-03-17] MEDS: Amlodipine 10 MG TAB PO SCH (09:15)
[2019-03-17] MEDS: Labetalol 100 MG TAB PO SCH ×2 (09:15→19:18)
[2019-03-17] MEDS: Senokot S 8.6-50 MG TAB PO SCH ×2 (09:16→19:17)
[2019-03-17] MEDS: Acetaminophen 650 MG Suppository PR PRN (09:17)
--- NOTE | 2019-03-17 10:36 | PDOC.HOSPP ---
- Subjective Encounter Date: 03/17/19 Encounter Time: 10:10 Subjective: f/u for Influenza A and developing RLL PNA. Daughter reports some improvement in respiratory status after receiving Lasix and Duonebs. - Objective Vital Signs & Weight: Vital Signs (12 hours) Temp Pulse Resp BP BP Pulse Ox 03/17/19 09:15 75 03/17/19 09:13 170/81 H 03/17/19 08:01 75 16 93 L 03/17/19 07:45 98.7 F 84 20 174/79 H 95 03/17/19 06:08 98.7 F 81 16 142/64 H 98 03/16/19 23:53 88 20 97 03/16/19 23:28 99.9 F H 82 16 129/59 L 94 L Weight Admit Weight 153 lb 9.6 oz Weight 145 lb 11.2 oz I&O: 03/16/19 03/17/19 03/18/19 06:59 06:59 06:59 Intake Total 1339 1010 Output Total 700 2600 Balance 639 -1590 Result Diagrams: 03/16/19 04:33 03/17/19 04:30 Additional Labs: Accuchecks 03/16/19 03/16/19 03/16/19 20:42 17:24 10:43 POC Glucose 257 H 265 H 235 H Radiology Reviewed by me: Yes (PCXR - bilat infiltrates R>L, ? pulm nodules) EKG Reviewed by me: Yes (Tele - SR) Hospitalist ROS - Medication Medications: Active Medications Generic Name Dose Route Start Last Admin Trade Name Freq PRN Reason Stop Dose Admin Acetaminophen 650 mg 03/14/19 02:16 03/17/19 09:17 Tylenol TN 650 mg Q4H PRN Administration Headache/Fever or Pain Albuterol/Ipratropium 3 ml 03/16/19 19:00 03/17/19 08:01 Duoneb NEB 3 ml [id number] STACY Administration Amlodipine Besylate 10 mg 03/15/19 09:00 03/17/19 09:15 Norvasc PO 10 mg DAILY STACY Administration Azathioprine 150 mg 03/15/19 09:00 03/17/19 09:14 Imuran PO 150 mg DAILY STACY Administration Clonazepam 1 mg 03/15/19 09:00 03/17/19 09:14 Klonopin PO 1 mg DAILY STACY Administration Enoxaparin Sodium 40 mg 03/14/19 09:00 03/17/19 09:12 Lovenox SC 40 mg 0900 STACY Administration Insulin Glargine 30 units/ 0.3 mls @ 0 mls/hr 03/15/19 09:00 03/17/19 09:10 Miscellaneous Medication SC 0.3 mls QAM STACY Administration Levofloxacin 750 mg/ Device 150 mls @ 100 mls/hr 03/17/19 09:00 03/17/19 09: 12 IVPB 150 mls Q24HR STACY Administration Insulin Human Lispro 0 units 03/14/19 09:41 03/15/19 17:33 Humalog SC 4 unit .MILD SLIDING SCALE PRN Administration Mild Correctional Scale Labetalol HCl 100 mg 03/14/19 21:00 03/17/19 09:15 Normodyne PO 100 mg BID STACY Administration Lisinopril 40 mg 03/15/19 09:00 03/17/19 09:13 Zestril PO 40 mg DAILY STACY Administration Lorazepam 1 mg 03/14/19 02:46 03/14/19 03:02 Ativan SLOW IVP 1 mg Q4H PRN Administration Anxiety/Agitation Melatonin 3 mg 03/14/19 09:32 03/16/19 21:25 Melatonin PO 3 mg HSPRN PRN Administration Insomnia Oseltamivir Phosphate 75 mg 03/14/19 09:00 03/17/19 09:12 Tamiflu PO 03/18/19 21:01 75 mg BID STACY Administration Pantoprazole Sodium 40 mg 03/15/19 09:00 03/17/19 09:13 Protonix PO 40 mg DAILY STACY Administration Senna/Docusate Sodium 1 tab 03/14/19 09:00 03/17/19 09:16 Senokot S PO 1 tab BID STACY Administration Sertraline HCl 50 mg 03/15/19 09:00 03/17/19 09:14 Zoloft PO 50 mg DAILY STACY Administration Temazepam 15 mg 03/14/19 09:33 03/16/19 21:25 Restoril PO 15 mg HSPRN PRN Administration Insomnia - Exam General Appearance: awake alert General - other findings: smiles, attempting to speak ENT: normocephalic atraumatic, no oropharyngeal lesions Neck: supple, symmetric, no JVD, no thyromegaly Heart: RRR, no murmur, no gallops, no rubs, normal peripheral pulses Respiratory - other findings: scattered coarse sounds and wheezes Gastrointestinal: soft, non-tender, non-distended, normal bowel sounds, no palpable masses Extremities: no cyanosis, no clubbing, no edema Skin: normal turgor, no lesions Neurological: no new deficit Neurological - other findings: expressive dysphasia, bed bound Psychiatric: oriented to person Hosp A/P (1) Acute respiratory failure with hypoxia Code(s): J96.01 - ACUTE RESPIRATORY FAILURE WITH HYPOXIA Status: Acute Plan: continue pulm supportive mgmt, see below, wean O2 as clinically indicated (2) Secondary bacterial pneumonia Code(s): J15.9 - UNSPECIFIED BACTERIAL PNEUMONIA Status: Acute Plan: Suspected given PCXR findings, start Levaquin 750mg IV daily, Duonebs, O2 (3) Influenza A Code(s): J10.1 - FLU DUE TO OTH IDENT INFLUENZA VIRUS W OTH RESP MANIFEST Status: Acute Plan: Continue Tamiflu 75mg BID (4) Hypokalemia Code(s): E87.6 - HYPOKALEMIA Status: Acute Plan: Continue KCL supplementation (5) HTN (hypertension) Code(s): I10 - ESSENTIAL (PRIMARY) HYPERTENSION Status: Chronic Qualifiers: Hypertension type: essential hypertension Qualified Code(s): I10 - Essential (primary) hypertension (6) Dementia Code(s): F03.90 - UNSPECIFIED DEMENTIA WITHOUT BEHAVIORAL DISTURBANCE Status: Chronic Plan: Advanced dementia - Plan plan discussed w/ family, continue antibiotics, 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
[2019-03-17] MEDS ORDERED: Furosemide 20 MG/2 ML VIAL SLOW IVP SCH (10:45)
[2019-03-17] MEDS: Ondansetron PF 4 MG/2 ML Vial IVP PRN ×2 (12:57→18:26)
[2019-03-17] MEDS: HumaLOG 300 UNITS/3 ML VIAL SC PRN (16:41)
[2019-03-17] MEDS: Temazepam 15 MG CAP PO PRN (19:23)
[2019-03-17] MEDS: Melatonin 3 MG TAB PO PRN (19:23)
[2019-03-18 05:14] LABS: Band 1 % (5-11); Hemoglobin 10.5 g/dL (12.0-16.0); Lymphocytes 38 % (21-51); MDiff Complete? YES; Mean Corpuscular HGB CONC 35.6 g/dL (32.0-36.0); Mean Corpuscular Hemoglobin 34.4 pg (27.0-31.0); Mean Corpuscular Volume 96.7 fL (78.0-98.0); Mean Platelet Volume 7.4 fL (7.4-10.4); Monocytes 9 % (0-10); Neutrophil 51 % (42-75); Platelet Count 124 thou/uL (130-400); Platelet Morphology Comment Appears Adequate; RBC Distribution Width 13.5 % (11.5-14.5); Red Blood Cell (RBC) Count 3.04 mill/uL (4.20-5.40)
[2019-03-18 05:29] LABS: Anion Gap 9 mmol/L (10-20); BUN (Urea Nitrogen) 11 mg/dL (9.8-20.1); Calc. Creatinine Clearance 79 mL/min (70-130); Carbon Dioxide 25 mmol/L (23-31); Chloride 110 mmol/L (98-107); Estimated GFR-MDRD Greater than 90; Glucose 209 mg/dL (83-110); Potassium 3.1 mmol/L (3.5-5.1); Sodium 141 mmol/L (136-145)
[2019-03-18] MEDS ORDERED: Potassium Chloride 20 MEQ TAB PO SCH ×2 (09:00→12:15)
[2019-03-18] MEDS ORDERED: clonazePAM 1 MG TAB PO SCH (09:00)
[2019-03-18] MEDS: Enoxaparin Sodium 40 MG/0.4 ML SYRINGE SC SCH (09:08)
[2019-03-18] MEDS: Insulin Glargine 30 UNITS in Pre-Filled Syringe 1 EACH SC SCH (09:09)
[2019-03-18] MEDS: Lisinopril 20 MG TAB PO SCH (09:59)
[2019-03-18] MEDS: Pantoprazole 40 MG GRANULES PACKET PO SCH (09:59)
[2019-03-18] MEDS: Labetalol 100 MG TAB PO SCH (10:00)
[2019-03-18] MEDS: Amlodipine 10 MG TAB PO SCH (10:02)
[2019-03-18] MEDS: azaTHIOprine 50 MG TAB PO SCH (10:02)
[2019-03-18] MEDS: Senokot S 8.6-50 MG TAB PO SCH (10:04)
[2019-03-18 12:09] VITALS: BP 143/67; TEMP 98.1
[2019-03-18] MEDS: Oseltamivir 6 MG/ML ORAL SUSP PO SCH (13:04)
--- NOTE | 2019-03-21 01:20 | PQF ---
AMY DOMÍNGUEZ CHARLES DO [id number] DARCY MURO [id number] CLINICAL DOCUMENTATION CLARIFICATION FORM: POST DISCHARGE Addendum to original discharge summary date: ____ Late entry note date: __ DATE: 03/21/19 ATTN:Dakota Britt Please exercise your independent, professional judgment in responding to the clarification form. Clinical indicators are provided on the bottom of this form for your review Please check appropriate box(s) to clarify if the following diagnosis has been ruled in or ruled out: SEPSIS [ ] Ruled in diagnosis [ ] Continue to treat [ ] Resolved [ ] Ruled out diagnosis [ ] Cannot rule out diagnosis [ ] Other diagnosis [ ] Unable to determine In addition, please specify: Present on Admission (POA): [ ] Yes [ ] No [ ] Unable to determine For continuity of documentation, please document condition throughout progress notes and discharge summary. Thank You. CLINICAL INDICATORS - SIGNS / SYMPTOMS / LABS PN 03/15 "Sepsis" ED Notes 03/13 "patient presents for evaluation of cough" ED Notes 03/13 "presents with complaint of decreased mental status, cough, congestion,runny nose and fever" PN 03/17 "follow up for influenza A and developing RLL PNA" PN 03/17 "secondary bacterial PNA" ED Vital Signs: Pulse:115 Respi:25 Temp:102.3 BP:143/57 RISK FACTORS ED Notes 03/13-78 years old female ED Notes 03/13-DM ED Notes 03/13-Alzheimer's dementia HP 03/13-Influenza A HP 03/13-SOY PN 03/17-Acute respiratory failure PN 03/17-Bacterial PNA TREATMENTS Collected 03/13-Chest Xray MAR 03/13-Zonsyn 4.5gm IV JUN 15-Vancomycin 1gm IV JUN 15-Tamiflu 75mg oral JUN 15-IVF (This form is maintained as a part of the permanent medical record) 2014 [employer] All Rights Reserved [email or web address] [not provided] MTDD
--- NOTE | 2019-03-21 01:25 | PQF ---
AMY DOMÍNGUEZ CHARLES DO [id number] DARCY MURO [id number] CLINICAL DOCUMENTATION CLARIFICATION FORM: POST DISCHARGE Addendum to original discharge summary date: ____ Late entry note date: __ DATE: 03/21/19 ATTN:Dakota Britt Please exercise your independent, professional judgment in responding to the clarification form. Clinical indicators are provided on the bottom of this form for your review Please check appropriate box(s): Conflicting documentation was noted in the Medical Record, please clarify if patient is being treated/monitored for: [ ] Bacterial Pneumonia [ ] No evidence of Pneumonia [ ] Other diagnosis [ ] Unable to determine In addition, please specify: Present on Admission (POA): [ ] Yes [ ] No [ ] Unable to determine For continuity of documentation, please document condition throughout progress notes and discharge summary. Thank You. CLINICAL INDICATORS - SIGNS / SYMPTOMS/ LABS Event Note 03/14 "She does not have evidence of PNA" ED Notes 03/13 "patient presents for evaluation of cough" ED Notes 03/13 "presents with complaint of decreased mental status, cough, congestion,runny nose and fever" PN 03/17 "follow up for influenza A and developing RLL PNA" PN 03/17 "secondary bacterial PNA" RISK FACTORS ED Notes 03/13-78 years old female ED Notes 03/13-DM ED Notes 03/13-Alzheimer's dementia HP 03/13-Influenza A HP 03/13-Sepsis HP 03/13-SOY PN 03/17-Acute respiratory failure TREATMENT Collected 03/13-Chest Xray MAR 03/13-Zosyn 4.5gm IV JUN 15-Vancomycin 1gm IV JUN 15-Tamiflu 75mg oral JUN 15-IVF (This form is maintained as a part of the permanent medical record) 2014 [employer]. All Rights Reserved [email or web address] [not provided] HARRISOND
--- NOTE | 2019-03-21 09:02 | DIS ---
DATE OF ADMISSION: 03/13/2019 DATE OF DISCHARGE: 03/18/2019 PRIMARY CARE PHYSICIAN: Dr. Jeffery Roa. DISCHARGE DIAGNOSES: 1. Acute respiratory failure with hypoxia. 2. Sepsis due to influenza and bacterial pneumonia. 3. Influenza A infection with pneumonitis. 4. Secondary bacterial pneumonia present on admission. 5. Hypokalemia. 6. Acute metabolic encephalopathy. 7. Hypertension. 8. Dementia. 9. History of autoimmune hepatitis. 10. Diabetes mellitus. 11. History of normal-pressure hydrocephalus. 12. Obstructive sleep apnea. 13. Nausea and vomiting. 14. Hyperlipidemia. 15. Possible spiculated right lung nodule. 16. Physical deconditioning. HOSPITAL COURSE: A 78-year-old female with multiple comorbidities including diabetes mellitus, autoimmune hepatitis, dementia, obstructive sleep apnea, and others, admitted due to fever and mental status change. The patient was found to have influenza A infection associated with sepsis, respiratory failure, and secondary bacterial infection. The patient was started on broad-spectrum antibiotics as well as IV fluid therapy; however, was no significant improvement in general condition. Following discussion with Palliative Care, the patient's daughter and son elected to make the patient's hospice. She was subsequently discharged back to the half-way with hospice care. PHYSICAL EXAMINATION: VITAL SIGNS: Temperature 98.1, pulse 84, respiratory rate 17, SpO2 of 93% on 1 L nasal cannula, blood pressure is 143/67. GENERAL: Obese female, in no obvious distress. Afebrile. Anicteric. HEENT: Normocephalic and atraumatic. The patient is nonverbal. CARDIOVASCULAR: Regular rhythm and rate. RESPIRATORY: Fair air entry bilateral with some crackles and transmitted breath sounds. GI: Full, soft, nondistended with normal bowel sounds. EXTREMITIES: No obvious edema or erythema appreciated. BOTTLE FILLER: The patient is awake, but states few or no words, regrets and acknowledges greetings. DISCHARGE CONDITION: Stable. DISCHARGE DISPOSITION: halfway with hospice. DISCHARGE MEDICATIONS: See discharge med rec. TIME SPENT: This discharge took more than 39 minutes. Job ID: [id number]
== END 2019-03-18 13:49 | disposition hospice, inpatient (51) | DRG 871 ==
LOC: ERS 19:44 → ERHOLD 21:10 → 2NO 03-14 19:43
PROVIDERS: ADMIT Internal Medicine; ATTEND Internal Medicine
DX: A41.9 Sepsis, unspecified organism (principal); J96.01 Acute respiratory failure with hypoxia; J10.08 Influenza due to other identified influenza virus with other specified pneumonia; J15.9 Unspecified bacterial pneumonia; G93.41 Metabolic encephalopathy; G30.9 Alzheimer's disease, unspecified; F02.80 Dementia in other diseases classified elsewhere, unspecified severity, without behavioral disturbance, psychotic disturbance, mood disturbance, and anxiety; I10 Essential (primary) hypertension; E11.9 Type 2 diabetes mellitus without complications; K75.4 Autoimmune hepatitis; G47.33 Obstructive sleep apnea (adult) (pediatric); E78.5 Hyperlipidemia, unspecified; E87.6 Hypokalemia; Z88.5 Allergy status to narcotic agent; Z91.09 Other allergy status, other than to drugs and biological substances; Z79.899 Other long term (current) drug therapy; Z86.73 Personal history of transient ischemic attack (TIA), and cerebral infarction without residual deficits; R91.1 Solitary pulmonary nodule
CPT/HCPCS: 36415; 36416; 71045; 80048; 80053; 81003; 81015; 82550; 83605; 83735; 83880; 84484; 85007; 85025; 85027; 87040; 87149; 87804; 93005; 94640; A4353; J1650; J1815; J1940; J1956; J2060; J2405; J2543; J3370; J3475; J3490; J7500; J7620